=== PATIENT | male | born 1975 | race African-American/Black ===

== ENCOUNTER 2021-09-27 18:24 | Emergency (ER) | payer OTHER ==
[~2021-09-27] VITALS: Ht 175.3 cm; Wt 108.0 kg
[2021-09-27 19:48] VITALS: BP 153/95
[2021-09-27] MEDS ORDERED: METH4TAB2 PO (19:56)
[2021-09-27] MEDS ORDERED: OXYC1TAB17 PO (19:56)
[2021-09-27] MEDS ORDERED: CYCL10TA19 PO (19:56)
--- NOTE | 2021-09-27 19:57 | PHYS DOC ---
Past Medical History Past Surgical History: Appendectomy, Other Additional Past Surgical Histo: right knee; r shoulder; sinus Smoking Status: Current Every Day Smoker Alcohol Use: Occasionally General Adult EDM: Chief Complaint: HEADACHE HPI: HPI: Patient is a 46 year old male with history of pinched nerve in his cervical spine presenting to the ED today complaining of pain behind his head, radiating to his neck, to his right upper extremity, patient states symptoms are chronic. Patient denies any trauma. Denies any numbness or tingling to bilateral upper extremities, denies loss of any function to bilateral upper extremities. He states he follows up with his own PCP who sent him to the ED today to be o bserved. He states has already had a CT of his neck, head, as well as MRI of his cervical spine. Review of Systems: Review of Systems: Constitutional: Denies fever or chills. [] Eyes: Denies change in visual acuity. [] HENT: Denies nasal congestion or sore throat. [] Respiratory: Denies cough or shortness of breath. [] Cardiovascular: Denies chest pain or edema. [] GI: Denies abdominal pain, nausea, vomiting, bloody stools or diarrhea. [] : Denies dysuria. [] Musculoskeletal: Reports neck pain radiating to the right upper extremity Integument: Denies rash. [] Neurologic: Reports pain behind his head, denies focal weakness or sensory changes. [] Psychiatric: Denies depression or anxiety. [] Heart Score: C/O Chest Pain: N/A Risk Factors: Risk Factors: DM, Current or recent (<one month) smoker, HTN, HLP, family history of CAD, obesity. Risk Scores: Score 0 - 3: 2.5% MACE over next 6 weeks - Discharge Home Score 4 - 6: 20.3% MACE over next 6 weeks - Admit for Clinical Observation Score 7 - 10: 72.7% MACE over next 6 weeks - Early Invasive Strategies Allergies: Allergies: Allergies Coded Allergies Type Severity Reaction Last Updated Verified aspirin Allergy Intermediate Unknown 09/27/21 Yes Physical Exam: PE: Constitutional: Well developed, well nourished, no acute distress, non-toxic appearance. [] HENT: Normocephalic, atraumatic, bilateral external ears normal, oropharynx moist, no oral exudates, nose normal. [] Eyes: PERRLA, EOMI, conjunctiva normal, no discharge. [] Neck: Normal range of motion, no tenderness, supple, no stridor. [] Cardiovascular:Heart rate regular rhythm, no murmur [] Lungs & Thorax: Bilateral breath sounds clear to auscultation [] Abdomen: Bowel sounds normal, soft, no tenderness, no masses, no pulsatile masses. [] Skin: Warm, dry, no erythema, no rash. [] Back: No tenderness, no CVA tenderness. [] Extremities: No tenderness, no cyanosis, no clubbing, ROM intact, no edema. [] Neurologic: Alert and oriented X 3, normal motor function, normal sensory function, no focal deficits noted. [] Psychologic: Affect normal, judgement normal, mood normal. [] Current Patient Data: Vital Signs: Vital Signs Date Time Temp Pulse Resp B/P (MAP) Pulse Ox O2 Delivery O2 Flow Rate FiO2 09/27/21 19:48 107 16 153/95 (114) 97 Room Air 09/27/21 19:01 98.9 98.9 EKG: EKG: [] Radiology/Procedures: Radiology/Procedures: [] Course & Med Decision Making: Course & Med Decision Making Pertinent Labs and Imaging studies reviewed. (See chart for details) This a 46-year-old male patient presenting to the ED today complaining of head pain radiating to the neck, to the right upper extremity, symptoms are chronic due to pinched nerve in his neck, physical exam patient has no neurological deficits. Patient also had a CT of his head, neck and also states he is already had MRI which were noted for pinched nerve. Recommended he follows up with a neurosurgeon which we provided. Dragon Disclaimer: Dragon Disclaimer: This electronic medical record was generated, in whole or in part, using a voice recognition dictation system. Departure Departure Impression: Primary Impression: Cervical radiculopathy Disposition: HOME / SELF CARE / HOMELESS Condition: STABLE Referrals: FAITH ZAVLAA (PCP) Follow-up with your doctor next week DERRICK HUNTER MD Please contact his office first thing tomorrow morning and set up a follow-up appointment Patient Instructions: Cervical Radiculopathy, [id number] Additional Instructions: We highly recommend you follow-up with the provided neurosurgeon, contact his office tomorrow morning and set up a follow-up appointment. Scripts Methylprednisolone (MEDROL) 4 Mg Tab.ds.pk 1 PKG PO UD, #1 PKG Prov: NEO HERNANDEZ APRN 09/27/21 Cyclobenzaprine Hcl (CYCLOBENZAPRINE HCL) 10 Mg Tablet 1 TAB PO TID, #30 TAB Prov: NEO HERNANDEZ APRN 09/27/21 Oxycodone HCl/Acetaminophen (Oxycodone-Acetaminophn 7.5-325) 1 Each Tablet 1 EACH PO Q6-8HRS PRN for PAIN, #10 TAB Prov: NEO HERNANDEZ APRN 09/27/21 NEO HERNANDEZ APRN September 27, 2021 19:57
== END 2021-09-27 20:19 | disposition home or self-care (01) ==
LOC: ER 18:24
DX: M54.12 Radiculopathy, cervical region (principal); M79.621 Pain in right upper arm; F17.200 Nicotine dependence, unspecified, uncomplicated
CPT/HCPCS: 99283